=== PATIENT | female | born 1985 | race American Indian/Alaskan Native ===

== ENCOUNTER 2016-09-18 18:54 | Emergency (ER) | payer SELFPAY ==
[2016-09-18 19:51] LABS: Basophils % (Auto) 0.3 % (0.0-1.8); Eosinophils % (Auto) 1.9 % (0.0-4.3); Hematocrit 38.1 % (30.3-42.9); Hemoglobin 11.8 gm/dl (10.1-14.3); Mean Corpuscular HGB Conc 31 % (30-34); Mean Corpuscular Volume 79 fl (79-97); Platelet Count 290 K/mm3 (140-440); Red Blood Count 4.85 M/mm3 (3.65-5.03); Red Cell Distribution Width 14.1 % (13.2-15.2); White Blood Count 12.7 K/mm3 (4.5-11.0)
[2016-09-18 20:04] LABS: Mean Corpuscular Hemoglobin 24 pg (28-32)
[2016-09-18 20:08] LABS: Bilirubin,Urine NEG (Negative); Blood,Urine NEG (Negative); Ketones,Urine TR mg/dL (Negative); Leukocyte Esterase,Urine NEG (Negative); Mucus,Urine 3+ /HPF; Nitrite,Urine NEG (Negative); Protein,Urine <15 mg/dL mg/dL (Negative); Urobilinogen,Urine < 2.0 mg/dL (<2.0)
[2016-09-18 20:10] LABS: Alanine Aminotransferase 22 units/L (7-56); Albumin 4.4 g/dL (3.9-5); Albumin/Globulin Ratio 1.4 %; Alkaline Phosphatase 68 units/L (35-129); Anion Gap 18 mmol/L; Blood Urea Nitrogen 9 mg/dL (7-17); Calcium 8.8 mg/dL (8.4-10.2); Carbon Dioxide 23 mmol/L (22-30); Chloride 99.6 mmol/L (98-107); Glucose 93 mg/dL (65-100); Lipase 14 units/L (13-60); Potassium 3.7 mmol/L (3.6-5.0); Sodium 137 mmol/L (137-145); Total Protein 7.5 g/dL (6.3-8.2)
[2016-09-19] MEDS ORDERED: MORPHINE ONE (00:39)
[2016-09-19] MEDS ORDERED: ZOFRAN ONE (00:39)
[2016-09-19] MEDS ORDERED: NACL 0.9% 1000 ML 1,000 ML ONE (00:39)
[2016-09-19] MEDS ORDERED: NACL 0.9% 1000 ML 1,000 ML IV ONE (00:40)
[2016-09-19] MEDS ORDERED: MORPHINE IM ONE (00:40)
[2016-09-19] MEDS ORDERED: ZOFRAN IV ONE (00:40)
[2016-09-19] MEDS ORDERED: MORPHINE IV ONE (00:45)
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
[2016-09-19 01:44] VITALS: BP 122/76
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
== END 2016-09-19 01:50 | disposition home or self-care (01) ==
LOC: ED 18:54
DX: S96.811A Strain of other specified muscles and tendons at ankle and foot level, right foot, initial encounter (principal); F17.200 Nicotine dependence, unspecified, uncomplicated; K52.89 Other specified noninfective gastroenteritis and colitis; X58.XXXA Exposure to other specified factors, initial encounter; Y99.8 Other external cause status; Y92.89 Other specified places as the place of occurrence of the external cause
CPT/HCPCS: 36415; 73620; 80053; 81001; 83690; 84702; 84703; 85025; 96361; 96374; 96375; 99284; J2270; J2405; J7030

== ENCOUNTER 2016-12-05 15:19 | Inpatient (IN) | payer OTHER ==
[2016-12-05 17:20] LABS: Basophils % (Auto) 0.5 % (0.0-1.8); Eosinophils % (Auto) 0.4 % (0.0-4.3); Hematocrit 41.2 % (30.3-42.9); Hemoglobin 13.4 gm/dl (10.1-14.3); Mean Corpuscular HGB Conc 33 % (30-34); Mean Corpuscular Hemoglobin 25 pg (28-32); Mean Corpuscular Volume 77 fl (79-97); Platelet Count 251 K/mm3 (140-440); Red Blood Count 5.38 M/mm3 (3.65-5.03); Red Cell Distribution Width 13.8 % (13.2-15.2); White Blood Count 10.8 K/mm3 (4.5-11.0)
[2016-12-05 17:36] LABS: Albumin 3.9 g/dL (3.9-5); Albumin/Globulin Ratio 1.8 %; Alkaline Phosphatase 67 units/L (35-129); Anion Gap 17 mmol/L; BUN/Creatinine Ratio 22; Bilirubin,Direct 0.2 mg/dL (0-0.2); Bilirubin,Indirect 0.5 mg/dL; Blood Urea Nitrogen 13 mg/dL (7-17); Calcium 8.9 mg/dL (8.4-10.2); Carbon Dioxide 21 mmol/L (22-30); Glucose 93 mg/dL (65-100); Potassium 4.1 mmol/L (3.6-5.0); Sodium 137 mmol/L (137-145); Total Protein 6.1 g/dL (6.3-8.2)
[2016-12-05 17:50] LABS: Alanine Aminotransferase 907 units/L (7-56)
[2016-12-05 20:35] LABS: Bilirubin,Urine SM (Negative); Blood,Urine NEG (Negative); Ketones,Urine TR mg/dL (Negative); Leukocyte Esterase,Urine NEG (Negative); Mucus,Urine 2+ /HPF; Nitrite,Urine NEG (Negative)
[2016-12-05] MEDS ORDERED: ACETADOTE IV ONE ×2 (22:17→23:00)
[2016-12-05] MEDS ORDERED: MORPHINE IV ONE (22:22)
[2016-12-05 22:43] LABS: Urine Drugs of Abuse Note Disclamer
[2016-12-05 22:44] LABS: INR 1.47 (0.87-1.13)
[2016-12-05 22:45] LABS: Partial Thromboplastin Time 45.6 Sec. (24.2-36.6)
[2016-12-05] MEDS ORDERED: D5W IV ONE (23:00)
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
[2016-12-05] MEDS ORDERED: DILAUDID IV ONE (23:35)
[2016-12-05] MEDS ORDERED: NACL ONE (23:45)
--- NOTE | 2016-12-06 00:57 | Cat Scan Report ---
FINAL REPORT EXAM: CT ABDOMEN PELVIS W CON HISTORY: Abd pain TECHNIQUE: Serial axial images through the abdomen and pelvis with coronal and sagittal reconstruction. Intravenous administration of 100 milliliters Omnipaque 300 PRIORS: None. FINDINGS: Lung bases are clear. No pleural effusion is seen. Gallbladder is surgically absent. No focal hepatic lesion is identified. There is fatty infiltration of the liver. Pancreas appears normal. Spleen appears normal. Adrenal glands appear normal. Staple lines are seen associated with the stomach and small bowel. There is not evidence of bowel obstruction. Kidneys appear normal. Aorta is normal in caliber. Bladder appears normal. No gross abnormality is seen in the uterus. There are involuting cysts in the ovaries, bilaterally. The appendix is not identified with certainty. No inflammatory changes are seen associated with the cecum. There is not evidence of bowel obstruction. No acute osseous abnormality is identified. IMPRESSION: 1. Surgical sequelae are noted. 2. No free fluid or inflammatory changes are seen in the abdomen or pelvis. 3. There is not evidence of bowel obstruction at this time. 4. Involuting cysts are noted in the ovaries, bilaterally.
[2016-12-06] MEDS ORDERED: ZOFRAN IV ONE (01:00)
[2016-12-06] MEDS: MORPHINE IV PRN ×4 (03:38→20:17)
[2016-12-06] MEDS ORDERED: NACL 0.9% 1000 ML 1,000 ML IV SCH (04:00)
[2016-12-06] MEDS ORDERED: TYLENOL PO PRN (04:11)
--- NOTE | 2016-12-06 04:23 | History and Physical Report ---
History of Present Illness Date of examination: 12/06/16 History of present illness: 36-year-old woman history of asthma, gastric bypass comes to emergency room with complaints of dysphagia to solid and liquid which started 2 days ago. Patient stated that liquid and food gets stuck in her chest and associated with pain. She to 24 pills of Tylenol, 500 mg over 24 hours for pain. Patient was found to have elevated LFTs and was started on a Mucomyst drip in the emergency room. Denies homicidal or suicidal ideation Review Of Systems: Constitutional: no weight loss Ears, eyes, nose, mouth and throat: no nasal congestion, no nasal discharge, no sinus pressure, blurry vision, diplopia Neck: No neck pain or rigidity. Cardiovascular: chest pain, orthopnea, palpitations Respiratory: No shortness of breath, cough Gastrointestinal: abdominal pain, hematochezia Genitourinary : no dysuria, frequency , hematuria Musculoskeletal: no muscle ache Integumentary: no rash, no pruritis Neurological: no parathesias, focal weakness Endocrine: no cold or heat intolerance, no polyuria or polydipsia Hematologic/Lymphatic: no easy bruising, no easy bleeding, no gland swelling Allergic/Immunologic: no urticaria, no angioedema. PAST MEDICAL HISTORY:asthma, gastric bypass PAST SURGICAL HISTORY: gastric bypass FAMILY HISTORY: Hypertension SOCIAL HISTORY: Denies alcohol, tobacco or drugs Medications and Allergies Allergies Allergy/AdvReac Type Severity Reaction Status Date / Time No Known Allergies Allergy Verified 09/18/16 19:26 Home Medications Medication Instructions Recorded Confirmed Last Taken Type No Known Home Medications [No 12/05/16 12/05/16 Unknown History Reported Home Medications] Active Meds: Active Medications Acetylcysteine 6,240 mg/ (Dextrose) 1,031.2 mls @ 64.45 mls/hr IV ONCE.ED ONE Stop: 12/06/16 21:59 Sodium Chloride (Nacl 0.9% 1000 Ml) 1,000 mls @ 100 mls/hr IV DIRECT HENRIETTA Morphine Sulfate (Morphine) 2 mg IV Q4H PRN PRN Reason: Pain, Moderate (4-6) Last Admin: 12/06/16 03:38 Dose: 2 mg Ondansetron HCl (Zofran) 4 mg IV Q4H PRN PRN Reason: N/V unrelieved by Reglan Exam - Physical Exam Narrative exam: Gen. appearance: Patient lying in bed in no acute distress HEENT: Normocephalic/atraumatic, pupils equal round reactive to light, extra alkaline movement intact, no scleral icterus, no JVD or thyromegaly or nodule, neck is supple, mucous membrane moist, no erythema or exudate Heart: S1-S2, regular rate and rhythm Lungs: Clear to auscultation bilateral breathing comfortable Abdomen: Positive bowel sounds, nontender, nondistended, no organomegaly Extremities: No edema, cyanosis, clubbing Neuro:: Oriented 3 , cranial nerves II-12 intact, speech, motor intact Skin: No rash, nodules, warm dry - Constitutional Vitals: Temp Pulse Resp BP Pulse Ox 98.0 F 57 L 13 131/81 98 12/05/16 23:00 12/06/16 03:00 12/06/16 03:00 12/06/16 03:00 12/06/16 03:00 Results - Labs CBC & Chem 7: 12/07/16 04:47 12/07/16 04:47 Labs: Abnormal lab results 12/05/16 12/05/16 12/05/16 Range/Units 16:54 16:54 20:13 RBC 5.38 H (3.65-5.03) M/mm3 MCV 77 L (79-97) fl MCH 25 L (28-32) pg Lymph % (Auto) 12.2 L (13.4-35.0) % Seg Neutrophils % 82.1 H (40.0-70.0) % Seg Neutrophils # 8.9 H (1.8-7.7) K/mm3 PT (12.2-14.9) Sec. INR (0.87-1.13) APTT (24.2-36.6) Sec. Carbon Dioxide 21 L (22-30) mmol/L Creatinine 0.6 L (0.7-1.2) mg/dL AST 788 H (5-40) units/L ALT 907 H (7-56) units/L Total Protein 6.1 L (6.3-8.2) g/dL Ur Specific Gravette 1.053 H (1.003-1.030) U Epithel Cells (Auto) 14.0 H (0-13.0) /HPF 10/04/17 Range/Units Unknown RBC (3.65-5.03) M/mm3 MCV (79-97) fl MCH (28-32) pg Lymph % (Auto) (13.4-35.0) % Seg Neutrophils % (40.0-70.0) % Seg Neutrophils # (1.8-7.7) K/mm3 PT 18.6 H (12.2-14.9) Sec. INR 1.47 H (0.87-1.13) APTT 45.6 H (24.2-36.6) Sec. Carbon Dioxide (22-30) mmol/L Creatinine (0.7-1.2) mg/dL AST (5-40) units/L ALT (7-56) units/L Total Protein (6.3-8.2) g/dL Ur Specific Gravette (1.003-1.030) U Epithel Cells (Auto) (0-13.0) /HPF - Imaging and Cardiology Chest x-ray: image reviewed Abdominal x-ray: image reviewed CT scan - abdomen: report reviewed CT scan - chest: report reviewed CT scan - pelvis: report reviewed Assessment and Plan Assessment Dysphagia to solid and liquid Elevated LFTs secondary to Tylenol overdose Plan Admit to medicine Start IV fluids, IV morphine, consult GI Continue Mucomyst drip, monitor LFTs, Tylenol DVT prophylaxis
[2016-12-06 05:01] LABS: Albumin 3.6 g/dL (3.9-5); Albumin/Globulin Ratio 1.6 %; Bilirubin,Direct 0.4 mg/dL (0-0.2); Bilirubin,Indirect 1.1 mg/dL; Bilirubin,Total 1.5 mg/dL (0.1-1.2); Total Protein 5.8 g/dL (6.3-8.2)
[2016-12-06] MEDS ORDERED: ACETADOTE IV ONE ×2 (06:00)
[2016-12-06] MEDS ORDERED: D5W IV ONE ×2 (06:00)
--- NOTE | 2016-12-06 07:38 | XRay Report ---
Abdominal series: History: Chest pain, abdominal pain. Findings: No acute lung changes. No bowel distention or wall thickening. Moderate amount of air and stool in colon. No radiopaque calculus or abnormal calcification. Impression: No acute lung changes. No definite acute abdominal findings. Stool in colon.
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
--- NOTE | 2016-12-06 11:36 | Event Note ---
Date: 12/07/16 Patient is 31 yo with tylenol overdose. I have seen and examined her today. GI following. Continue monitoring INR, LFTs.
[2016-12-06] MEDS: PROTONIX IV SCH (16:55)
[2016-12-06] MEDS: ZOFRAN IV PRN (20:25)
[2016-12-07] MEDS: MORPHINE IV PRN ×3 (02:22→14:24)
[2016-12-07] MEDS: ZOFRAN IV PRN (02:22)
[2016-12-07 05:32] LABS: Hematocrit 35.9 % (30.3-42.9); Hemoglobin 11.7 gm/dl (10.1-14.3); Mean Corpuscular HGB Conc 33 % (30-34); Mean Corpuscular Volume 75 fl (79-97); Platelet Count 164 K/mm3 (140-440); Red Blood Count 4.75 M/mm3 (3.65-5.03); Red Cell Distribution Width 13.8 % (13.2-15.2); White Blood Count 11.6 K/mm3 (4.5-11.0)
[2016-12-07 05:34] LABS: Mean Corpuscular Hemoglobin 25 pg (28-32)
[2016-12-07 05:35] LABS: INR 2.9 (0.87-1.13)
[2016-12-07 05:50] LABS: Albumin 3.4 g/dL (3.9-5); Albumin/Globulin Ratio 1.5 %; Alkaline Phosphatase 77 units/L (35-129); Anion Gap 20 mmol/L; BUN/Creatinine Ratio 18; Blood Urea Nitrogen 7 mg/dL (7-17); Calcium 8.2 mg/dL (8.4-10.2); Carbon Dioxide 21 mmol/L (22-30); Chloride 102.2 mmol/L (98-107); Glucose 92 mg/dL (65-100); Potassium 3.4 mmol/L (3.6-5.0); Sodium 140 mmol/L (137-145); Total Protein 5.7 g/dL (6.3-8.2)
[2016-12-07 06:07] LABS: Alanine Aminotransferase 10563 units/L (7-56)
[2016-12-07 06:57] LABS: Blastocytes % (Manual) 0 %
[2016-12-07 06:58] LABS: Anisocytosis 1+; Burr Cells Few; Diff Status Complete; Elliptocytes Few; Hypochromasia 1+; Ovalocytes Few
[2016-12-07] MEDS: PROTONIX IV SCH (09:00)
[2016-12-07] MEDS ORDERED: DILAUDID IV PRN (12:00)
[2016-12-07] MEDS ORDERED: Fluarix Quad 2017-2018(36 MOS+) IM ONE (12:00)
--- NOTE | 2016-12-07 13:34 | Event Note ---
Date: 12/07/16 Patient presented after Tylenol overdose. labs today show acute liver failure. i discussed case with KEYANNA Avelar.. Patient to be transferred to Tertiary center. I called and spoke to staff at [facility]. Awaiting callback.
[2016-12-07] MEDS ORDERED: D5/0.45NS 1,000 ML IV SCH (14:00)
--- NOTE | 2016-12-07 15:01 | Discharge Summary ---
Providers - Providers Date of Admission: 12/06/16 04:11 Date of discharge: 12/07/16 Attending physician: BALDO LESTER Primary care physician: [facility] Hospitalization Condition: Fair Hospital course: Patient is 31-year-old with history of asthma and gastric bypass. She came to hospital because she was 'feeling bad' She had pain in throat area and took 24 pills of 500mg Tylenol within 24 hours. She denied any suicidal ideation or attempts. She says she took Tylenol just to control the pain. She was evaluated in emergency department. On presentation her Bilirubin was normal 0.7 , AST 788, ALT 907, and INR 1.49. Case was discussed with poison control. She was started on Mucomyst infusion and admitted . Following day, there was slight increase in AST and ALT. Today there was marked increase elevation with INR 2.9 from 1.49 about 36 hrs ago and marked increase AST now 9,231 and ALT 10,563. She is diagnosed with acute hepatic failure secondary to Tylenol overdose. I discussed with GI physician, Dr. Fountain. It was decided patient should be transferred to tertiary center. I called [facility] and discussed with Dr. Banks, Apparel Sales Associate and also Dr. Juan José Meraz, hospitalist. After discussing case he was accepted by Dr. Meraz to hospitalist service at [facility] and will be transferred today. Total time spent on discharge 35 mins Disposition: DC/TX-70 ANOTHER TYPE HLTHCARE - Discharge Diagnoses (1) Acute hepatic failure Status: Acute Qualifiers: Hepatic coma status: H (2) Acetaminophen overdose Status: Acute Qualifiers: Encounter type: initial encounter Injury intent: accidental or unintentional Qualified Code(s): T39.1X1A - Poisoning by 4-Aminophenol derivatives, accidental (unintentional), initial encounter (3) Odynophagia Status: Acute Core Measure Documentation - Palliative Care Palliative Care/ Comfort Measures: Not Applicable - Core Measures Any of the following diagnoses?: none Exam - Constitutional Vitals: Temp Pulse Resp BP Pulse Ox 98.6 F 77 18 108/60 100 12/07/16 10:15 12/07/16 13:00 12/07/16 10:15 12/07/16 10:15 12/07/16 10:35 General appearance: Present: no acute distress - EENT ENT: hearing intact - Neck Neck: Present: supple - Respiratory Respiratory effort: normal Respiratory: bilateral: CTA - Cardiovascular Rhythm: regular Heart Sounds: Present: S1 & S2 - Extremities Extremities: no ischemia, No edema - Abdominal General gastrointestinal: Present: soft, tender, non-distended, normal bowel sounds Localized gastrointestinal: tender: RUQ, epigastric periumbilical - Musculoskeletal Musculoskeletal: strength equal bilaterally - Neurologic Neurologic: moves all extremities, other (AAO x 3) Plan Diet: other (NPO) Additional Instructions: 1.Continue iv fluid D5 0.45 NS, Dilaudid iv prn, Zofran iv prn Follow up with: PRIMARY CARE, [Primary Care Provider] - 3-5 Days Forms: Work/School Excuse Out Patient, Work/School Release Form
--- NOTE | 2016-12-07 16:21 | Gastroenterology Progress Note ---
Assessment and Plan - Patient Problems (1) Abdominal pain Current Visit: Yes Status: Acute Qualifiers: Abdominal location: upper abdomen, unspecified Qualified Code(s): R10.10 - Upper abdominal pain, unspecified Plan to address problem: Uncertain origin. Endoscopy cancelled in light of acute liver failure evolving. (2) Acetaminophen overdose Current Visit: Yes Status: Acute Qualifiers: Encounter type: initial encounter Injury intent: accidental or unintentional Qualified Code(s): T39.1X1A - Poisoning by 4-Aminophenol derivatives, accidental (unintentional), initial encounter Plan to address problem: The LFTs sharply increased overnight with the ALT now over 10,000 and the AST over 9,000. Mild coagulopathy is present, but she is not encephalopathic. The patient is at risk of progressive liver failure and in this setting and upon finding out the labs, transfer to the [facility] team was initiated. She will be going there today. The patient was made aware of the seriousness of this condition and is in agreement. Apparently the overdose was unintentional, but she takes acetominophen on a daily basis in uncertain amounts. (3) Hepatic injury due to toxin Current Visit: Yes Status: Acute (4) Odynophagia Current Visit: Yes Status: Acute Subjective Date of service: 12/07/16 Principal diagnosis: abdominal pain, tylenol overdose with liver failure Interval history: The patient reports moderate abdominal pain today, unchanged and close to her baseline. Objective - Constitutional Vitals: Temp Pulse Resp BP Pulse Ox 98.6 F 77 18 108/60 100 12/07/16 10:15 12/07/16 13:00 12/07/16 10:15 12/07/16 10:15 12/07/16 10:35 General appearance: no acute distress - EENT ENT: hearing intact, clear oral mucosa, dentition normal - Neck Neck: supple, normal ROM - Cardiovascular Rhythm: regular - Gastrointestinal General gastrointestinal: Present: soft, non-tender, tender, normal bowel sounds - Neurologic Neurological: alert and oriented x3, other (no asterixis) - Labs CBC & Chem 7: 12/07/16 04:47 12/07/16 04:47 Labs: Laboratory Results - last 24 hr 12/07/16 12/07/16 12/07/16 04:47 04:47 04:47 WBC 11.6 H RBC 4.75 Hgb 11.7 Hct 35.9 MCV 75 L MCH 25 L MCHC 33 RDW 13.8 Plt Count 164 Add Manual Diff Complete Total Counted 100 Seg Neutrophils % Turf Farmer Seg Neuts % (Manual) 77.0 H Band Neutrophils % 5.0 Lymphocytes % (Manual) 9.0 L Reactive Lymphs % (Man) 0 Monocytes % (Manual) 7.0 Eosinophils % (Manual) 2.0 Metamyelocytes % 0 Myelocytes % 0 Promyelocytes % 0 Blast Cells % 0 Nucleated RBC % Not Reportable Seg Neutrophils # Man 8.9 H Band Neutrophils # 0.6 Lymphocytes # (Manual) 1.0 L Abs React Lymphs (Man) 0.0 Monocytes # (Manual) 0.8 Eosinophils # (Manual) 0.2 Basophils # (Manual) 0.0 Metamyelocytes # 0.0 Myelocytes # 0.0 Promyelocytes # 0.0 Blast Cells # 0.0 WBC Morphology Not Reportable Hypersegmented Neuts Not Reportable Hyposegmented Neuts Not Reportable Hypogranular Neuts Not Reportable Smudge Cells Not Reportable Toxic Granulation Not Reportable Toxic Vacuolation Not Reportable Dohle Bodies Not Reportable Pelger-Huet Anomaly Not Reportable Santi Rods Not Reportable Platelet Estimate Appears normal Clumped Platelets Not Reportable Plt Clumps, EDTA Not Reportable Large Platelets Not Reportable Giant Platelets Not Reportable Platelet Satelliting Not Reportable Plt Morphology Comment Not Reportable RBC Morphology Not Reportable Dimorphic RBCs Not Reportable Polychromasia Not Reportable Hypochromasia 1+ Poikilocytosis Not Reportable Anisocytosis 1+ Microcytosis Not Reportable Macrocytosis Not Reportable Spherocytes Not Reportable Pappenheimer Bodies Not Reportable Sickle Cells Not Reportable Target Cells Not Reportable Tear Drop Cells Not Reportable Ovalocytes Few Helmet Cells Not Reportable [place] Bodies Not Reportable [place] Rings Not Reportable [place] Cells Few Bite Cells Not Reportable Crenated Cell Not Reportable Elliptocytes Few Acanthocytes (Spur) Not Reportable Rouleaux Not Reportable Hemoglobin C Crystals Not Reportable Schistocytes Not Reportable Malaria parasites Not Reportable [place] Bodies Not Reportable Hem Pathologist Commnt No PT 31.7 H INR 2.90 H Sodium 140 Potassium 3.4 L Chloride 102.2 Carbon Dioxide 21 L Anion Gap 20 BUN 7 Creatinine 0.4 L Estimated GFR > 60 BUN/Creatinine Ratio 18 Glucose 92 Calcium 8.2 L Total Bilirubin 2.50 H AST 9231 H ALT 78308 H Alkaline Phosphatase 77 Total Protein 5.7 L Albumin 3.4 L Albumin/Globulin Ratio 1.5
[2016-12-07 18:04] VITALS: BP 122/67
== END 2016-12-07 18:21 | disposition short-term general hospital (02) | DRG 917 ==
LOC: ED 15:19 → 4A 12-06 04:11
PROVIDERS: ADMIT Internal Medicine; ATTEND Internal Medicine
PROC: 3E0234Z Introduction of Serum, Toxoid and Vaccine into Muscle, Percutaneous Approach (ICD-10-PCS; principal; 2016-12-07)
DX: T39.1X1A Poisoning by 4-Aminophenol derivatives, accidental (unintentional), initial encounter (principal); K72.00 Acute and subacute hepatic failure without coma; R13.10 Dysphagia, unspecified; R74.0 Nonspecific elevation of levels of transaminase and lactic acid dehydrogenase [LDH]; Z98.84 Bariatric surgery status; Y92.89 Other specified places as the place of occurrence of the external cause; Z82.49 Family history of ischemic heart disease and other diseases of the circulatory system; Z23 Encounter for immunization
CPT/HCPCS: 36415; 74022; 74177; 80048; 80053; 80074; 80307; 80320; 81001; 81025; 82140; 85007; 85025; 85610; 85730; 90686; 93005; 93010; 96365; 96366; 96375; 96376; C9113; G0480; J0132; J1170; J2270; J2405; J7030; J7060; J7070; Q9967

== ENCOUNTER 2017-04-08 07:59 | Emergency (ER) | payer SELFPAY ==
[2017-04-08 09:19] VITALS: BP 123/62
[2017-04-08 12:09] LABS: HCG Qualitative,Urine Negative (Negative)
[2017-04-08 12:11] LABS: Bacteria,Urine 1+ /HPF (Negative); Bilirubin,Urine NEG (Negative); Blood,Urine NEG (Negative); Color,Urine Amber (Yellow); Mucus,Urine 3+ /HPF; Nitrite,Urine NEG (Negative)
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
[2017-04-08] MEDS ORDERED: NORCO 7.5/325 PO ONE (13:39)
== END 2017-04-08 14:16 | disposition home or self-care (01) ==
LOC: ED 07:59
DX: N75.0 Cyst of Bartholin's gland (principal); J45.909 Unspecified asthma, uncomplicated; Z98.84 Bariatric surgery status
CPT/HCPCS: 81001; 81025; 99283

== ENCOUNTER 2017-06-02 23:31 | Emergency (ER) | payer MEDICAID ==
[2017-06-02 23:41] VITALS: BP 115/69
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
[2017-06-03] MEDS ORDERED: MOTRIN PO ONE ×2 (00:53→00:55)
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
[2017-06-03] MEDS ORDERED: ULTRAM ONE (01:10)
[2017-06-03] MEDS ORDERED: ULTRAM PO ONE (01:13)
== END 2017-06-03 01:15 | disposition home or self-care (01) ==
LOC: ED 23:31
DX: M25.571 Pain in right ankle and joints of right foot (principal); M79.671 Pain in right foot; J45.909 Unspecified asthma, uncomplicated; F17.200 Nicotine dependence, unspecified, uncomplicated; Z98.84 Bariatric surgery status; W19.XXXA Unspecified fall, initial encounter; Y93.89 Activity, other specified; Y99.8 Other external cause status; Y92.410 Unspecified street and highway as the place of occurrence of the external cause
CPT/HCPCS: 99283

== ENCOUNTER → 2017-09-27 21:38 | Emergency (ER) | payer MEDICAID ==
[2017-09-27 21:46] VITALS: BP 113/49
== END ==
LOC: ED 21:38
DX: M54.9 Dorsalgia, unspecified (principal); Z53.21 Procedure and treatment not carried out due to patient leaving prior to being seen by health care provider

== ENCOUNTER 2017-10-25 23:19 | Emergency (ER) | payer MEDICAID ==
[2017-10-26 01:39] VITALS: BP 108/70
[2017-10-26] MEDS ORDERED: NACL 0.9% 1000 ML 1,000 ML IV ONE (01:40)
[2017-10-26] MEDS ORDERED: TORADOL IM ONE (01:40)
[2017-10-26 02:03] LABS: Basophils # (Auto) 0.1 K/mm3 (0.0-0.1); Eosinophils # (Auto) 0.2 K/mm3 (0.0-0.4); Eosinophils % (Auto) 3.1 % (0.0-4.3); Hematocrit 31.2 % (30.3-42.9); Hemoglobin 9.8 gm/dl (10.1-14.3); Lymphocytes # (Auto) 1.9 K/mm3 (1.2-5.4); Lymphocytes % (Auto) 26.1 % (13.4-35.0); Mean Corpuscular HGB Conc 31 % (30-34); Mean Corpuscular Volume 71 fl (79-97); Monocytes # (Auto) 0.4 K/mm3 (0.0-0.8); Monocytes % (Auto) 5.6 % (0.0-7.3); Platelet Count 276 K/mm3 (140-440); Red Blood Count 4.41 M/mm3 (3.65-5.03); Red Cell Distribution Width 18.4 % (13.2-15.2)
[2017-10-26 02:14] LABS: Bilirubin,Urine NEG (Negative); Blood,Urine NEG (Negative); Color,Urine Amber (Yellow); Mucus,Urine 2+ /HPF; Protein,Urine <15 mg/dL mg/dL (Negative)
[2017-10-26 02:17] LABS: Mean Corpuscular Hemoglobin 22 pg (28-32)
[2017-10-26 02:48] LABS: Alanine Aminotransferase 20 units/L (7-56); Albumin 3.6 g/dL (3.9-5); BUN/Creatinine Ratio 15; Blood Urea Nitrogen 9 mg/dL (7-17); Calcium 8.4 mg/dL (8.4-10.2); Hemolysis Index 2; Lipase 9 units/L (13-60)
== END 2017-10-26 04:00 | disposition left against medical advice (07) ==
LOC: ED 23:19
DX: R10.2 Pelvic and perineal pain (principal); Z53.21 Procedure and treatment not carried out due to patient leaving prior to being seen by health care provider
CPT/HCPCS: 36415; 80053; 81001; 83690; 84703; 85025; J1885